=== PATIENT | female | born 1960 | race African-American/Black ===

== ENCOUNTER 2019-02-24 22:52 | Emergency (ER) | payer BC, OTHER ==
[~2019-02-24 22:52] MED LIST: Iopamidol 370 76% 125 ML VIAL FS ONE
[2019-02-24] MEDS ORDERED: Mag-Al Plus 1200 MG/1200 MG/120 MG/30 ML UDCUP ONE (23:31)
[2019-02-24] MEDS ORDERED: Ondansetron PF 4 MG/2 ML Vial ONE (23:31)
[2019-02-24] MEDS ORDERED: Pantoprazole 40 MG VIAL ONE (23:32)
[2019-02-24 23:49] LABS: ALT (SGPT) 20 U/L (8-55); AST (SGOT) 15 U/L (5-34); Albumin 4.4 g/dL (3.4-4.8); Alkaline Phosphatase 78 U/L (40-150); Anion Gap 15 mmol/L (10-20); BUN (Urea Nitrogen) 17 mg/dL (9.8-20.1); Bilirubin, Total 0.4 mg/dL (0.2-1.2); Calc. Creatinine Clearance 0 mL/min (70-130); Calcium 9.3 mg/dL (7.8-10.44); Carbon Dioxide 24 mmol/L (23-31); Chloride 108 mmol/L (98-107); Estimated GFR-MDRD 67; Globulin 3.1 g/dL (2.4-3.5); Glucose 187 mg/dL (80-115); Lipase 10 U/L (8-78); Potassium 4.1 mmol/L (3.5-5.1); Protein, Total 7.5 g/dL (6.0-8.3); Sodium 143 mmol/L (136-145)
[2019-02-25 00:23] LABS: #Basophils 0.1 thou/uL (0.0-0.2); #Eosinphils 0.1 thou/uL (0.0-0.7); #Lymphocytes 1.6 thou/uL (1.20-3.40); #Monocytes 0.7 thou/uL (0.11-0.59); %Basophils 0.8 % (0.0-1.0); %Eosinophils 0.6 % (0.0-10.0); %Lymphocytes 18.6 % (21.0-51.0); %Monocytes 8.5 % (0.0-10.0); %Neutrophils 71.4 % (42.0-75.0); Hemoglobin 13.9 g/dL (12.0-16.0); Mean Corpuscular Hemoglobin 28.3 pg (27.0-31.0); Mean Corpuscular Volume 85.7 fL (78.0-98.0); Mean Platelet Volume 10.8 fL (7.4-10.4); Platelet Count 215 thou/uL (130-400); RBC Distribution Width 12.4 % (11.5-14.5); Red Blood Cell (RBC) Count 4.91 mill/uL (4.20-5.40); White Blood Cell (WBC) Count 8.4 thou/uL (4.8-10.8)
[2019-02-25 00:42] LABS: Bilirubin Negative (Negative); Blood, Urine Negative (Negative); Clarity Clear (Clear); Glucose, Urine (Dipstick) 100 mg/dL (Negative); Leukocyte Negative (Negative); Nitrite Negative (Negative); Protein, Urine (Dipstick) Negative (Neg-Trace); Specific Gravity, Urine 1.015 (1.005-1.030); Urobilinogen 0.2 mg/dL (0.2-1.0); pH, Urine 5.5 (5.0-9.0)
--- NOTE | 2019-02-25 07:28 | CT ---
CT ABDOMEN AND PELVIS WITH CONTRAST: Date: 02/25/19 No prior comparison. INDICATION: New onset epigastric/abdominal pain. FINDINGS: Low attenuation of the hepatic parenchyma indicates hepatic steatosis. Correlate with liver function enzymes. The gallbladder is mildly contracted. There are calculi within the mid left kidney adjacent to a site of parenchymal volume loss that may be related to scar. No evidence of obstructive uropathy or perinephric inflammation. Focal cortical defect is present at the superior right kidney, chronic in appearance. The bowel is incompletely evaluated without enteric contrast. There is subtle haziness of mesenteric fat at the low abdomen/pelvis, some of which could relate to slight mesenteric venous congestion and/or inflammatory edema. There is no free air. Abdominal aorta is normal in caliber. No acute abnormality of the spleen, pancreas, or adrenal glands. No free pelvic fluid. Evaluation of reg ional skeletal structures reveals degenerative changes. No significant abnormality at the visualized lung bases. IMPRESSION: 1. Hepatic steatosis. 2. Left renal calculi without associated obstruction. 3. Incomplete assessment of the bowel without enteric contrast. There is a slight degree of mesenter ic haziness at the low abdomen adjacent to nondilated distal small bowel. This could relate to mild m esenteric edema or inflammatory edema, possibly related to enteritis. Correlate clinically. POS: JOHN
--- NOTE | 2019-02-25 08:04 | RAD ---
EXAM: Single view of the chest HISTORY: Cough COMPARISON: None FINDINGS: Single view of the chest shows a normal sized cardiomediastinal silhouette. There is no lynsey dence of consolidation, mass, or pleural effusion. The bones are unremarkable. IMPRESSION: No evidence of acute cardiopulmonary disease
== END 2019-02-25 01:10 | disposition home or self-care (01) ==
LOC: BURERS 22:52
DX: A08.4 Viral intestinal infection, unspecified (principal); K21.9 Gastro-esophageal reflux disease without esophagitis
CPT/HCPCS: 71045; 74177; 80053; 81003; 83605; 83690; 84484; 85025; 93005; 94760; 96372; 96374; 96375; C9113; J0500; J2405; Q9967